=== PATIENT | male | born 1970 | race Caucasian/White ===

== ENCOUNTER 2018-01-28 12:18 | Emergency (ER) | payer MEDICAID ==
[~2018-01-28] VITALS: Ht 185.4 cm; Wt 74.8 kg
[~2018-01-28 12:18] MED LIST: ALLEGRA-D 24 H1 EACH PO; ANAPROX275 MG PO; AUGMENTIN 875875 MG PO; DOXYCYCLINE 10100 MG PO; FLEXERIL PO; HYDROCODON-ACE1 EAC7 PO; HYDROCODONE-AP1 EAC6 PO; IBUPROFEN 600600 M1 PO; NAPROSYN500 MG PO; NAPROXEN 375 M375 M1 PO; NOHOMEMEDICATIONS; NORCO 5-325 TA1 EACH PO; TRAMADOL 50 MG50 MG PO
[2018-01-28] MEDS ORDERED: ASPIR 8181 MG PO (12:40)
[2018-01-28] MEDS ORDERED: LASIX 40 MG TAB40 M2 PO (12:40)
[2018-01-28] MEDS ORDERED: PRAVACHOL20 MG PO (12:41)
[2018-01-28] MEDS ORDERED: TOPROL XL100 MG PO (12:41)
[2018-01-28 13:13] LABS: ABSOLUTE BASOPHILS 0.1 thou/uL (0.0-0.2); ABSOLUTE LYMPHOCYTES 2.2 thou/uL (0.8-5.3); ABSOLUTE MONOCYTES 0.8 thou/uL (0.0-1.2); ABSOLUTE NEUTROPHILS 8.2 thou/uL (1.6-8.1); BASOPHILS 0.6 %; EOSINOPHILS 0.1 %; HEMATOCRIT 33.2 % (42.0-52.0); HEMOGLOBIN 10.9 gm/dL (14.0-18.0); LYMPHOCYTES 19.8 %; MCH 29.5 pg (26.0-34.0); MCHC 32.9 g/dL (28.0-37.0); MCV 89.5 fL (80.0-100.0); MONOCYTES 6.9 %; MPV 7.1 fl. (7.2-11.1); NUCLEATED RBCS 0 /100WBC; PLATELET COUNT* 439 thou/uL (150-400); POLYS 72.6 %; RDW-CV 16.8 % (10.5-14.5); WBC 11.3 thou/uL (4.0-11.0)
[2018-01-28 13:26] LABS: ANION GAP 8 mmol/L (7-16); BUN 7 mg/dL (7-18); CALCIUM 8.7 mg/dL (8.5-10.1); CHLORIDE 94 mmol/L (98-107); CO2 23 mmol/L (21-32); CREATININE 0.6 mg/dL (0.6-1.3); GLUCOSE 106 mg/dL (70-99); POTASSIUM 4.3 mmol/L (3.5-5.1); SODIUM 125 mmol/L (136-145)
[2018-01-28 13:28] LABS: INR 1.1; PROTIME 11.5 Seconds (9.20-11.50)
[2018-01-28 13:37] LABS: ALBUMIN 2.8 g/dL (3.4-5.0); ALKALINE PHOSPHATASE 91 U/L (46-116); LIPASE 63 U/L (73-393); NT-PRO BRAIN NAT PEPTIDE 23581 pg/mL (<300); SGOT 13 U/L (15-37); SGPT 10 U/L (30-65); TOTAL BILIRUBIN 1.7 mg/dL (<0.1-1.0); TOTAL PROTEIN 7.8 g/dL (6.4-8.2); TROPONIN-I LEVEL <0.06 ng/mL (<0.06)
[2018-01-28 14:10] LABS: AMP/METHAMP Negative (Negative); BARBITURATES Negative (Negative); BENZODIAZEPINES Negative (Negative); COCAINE Negative (Negative); METHADONE Negative (Negative); OPIATES Negative (Negative); PCP Negative (Negative); THC Negative (Negative)
[2018-01-28] MEDS ORDERED: LASIX 20 MG TAB20 MG PO (16:24)
[2018-01-28] MEDS ORDERED: HYDROCODON-ACE1 EAC7 PO (16:32)
[2018-01-28 16:44] VITALS: BP 120/87
--- NOTE | 2018-01-28 17:14 | EKG ---
[place] [address] ELECTROCARDIOGRAM REPORT Name: MITCH DONOHUE JR Room: [facility]#: [id number] Admission: 01/28/18 Attend Phys: Discharge: 01/28/18 Date of : 72 Report #: [id number] THIS REPORT FOR: //name// [facility] ED Test Date: 2018-01-28 Test Time: 13:01:32 Pat Name: MITCH DONOHUE Department: Room: Gender: M Inspector [employer]: KAMI : 1970 Requested By: Florin Castillo Order Number: [id number] MD: Candido Michaels Measurements Intervals [place]man Rate: 100 P: 36 AK: 152 QRS: 29 QRSD: 96 T: 179 QT: 419 QTc: 541 Interpretive Statements Sinus tachycardia Left atrial enlargement Abnormal R-wave progression, late transition LVH with secondary repolarization abnormality Prolonged QT interval Baseline wander in lead(s) V3 No previous ECG available for comparison Electronically Signed On 01-28-2018 17:14:41 CDT by Candido Michaels [email or web address] <ELECTRONICALLY SIGNED> By: Candido Michaels MD, [facility] 01/28/18 1714 1301 1301 Candido Michaels MD, [facility] /EPI
== END 2018-01-28 16:45 | disposition home or self-care (01) ==
LOC: M.ERS 12:18
PROVIDERS: Emergency Medicine
DX: I50.9 Heart failure, unspecified (principal); E87.1 Hypo-osmolality and hyponatremia; I21.4 Non-ST elevation (NSTEMI) myocardial infarction; F17.210 Nicotine dependence, cigarettes, uncomplicated; Z86.2 Personal history of diseases of the blood and blood-forming organs and certain disorders involving the immune mechanism